=== PATIENT | male | born 1960 | race Caucasian/White ===

== ENCOUNTER 2016-11-30 17:23 | Emergency (ER) | payer BC ==
[2016-11-30 19:18] LABS: CHLORIDE,CL 104 mmol/L (98-110); SODIUM,NA 141 mmol/L (136-146)
--- NOTE | 2016-11-30 19:20 | EDM.PDOC ---
ED HPI GI/ABDOMINAL - General Chief Complaint: Gastrointestinal Problem Stated Complaint: STOMACH PAIN Time Seen by Provider: 11/30/16 17:36 Source of Information: Reports: Patient History Limitations: Reports: No limitations - History of Present Illness INITIAL COMMENTS - FREE TEXT/NARRATIVE: Presents reporting that on November 28 he inserted a regular sized orange into his rectum. Since that time he has been unable to retrieve it either manually or by having a bowel movement. Now, he is uncomfortable with some sweating but no nausea, fever or vomiting. He has not passed any stool or gas since the insertion. - Related Data Allergies/ADRs: Allergies Allergy/AdvReac Type Severity Reaction Status Date / Time No Known Allergies Allergy Verified 11/30/16 17:32 Home Meds: Home Meds . [No Known Home Meds] 11/30/16 [History] Past Medical History HEENT History: Reports: Impaired vision - Past Surgical History Musculoskeletal Surgical History: Reports: Other (see below) Other Musculoskeletal Surgeries/Procedures:: left hip surgery with screws Social & Family History - Family History Family Medical History: Noncontributory - Tobacco Use Smoking Status *Q: Never Smoker Second Hand Smoke Exposure: No - Caffeine Use Caffeine Use: Reports: Soda Caffeine Use Comment: 2 sodas a day - Alcohol Use Days Per Week of Alcohol Use: 7 Number of Drinks Per Day: 2 Total Drinks Per Week: 14 - Recreational Drug Use Recreational Drug Use: No ED ROS GENERAL - Review of Systems Review Of Systems: ROS reveals no pertinent complaints other than HPI. ED EXAM, GI/ABD - Physical Exam Exam: See Below Exam Limited By: No limitations General Appearance: alert, no apparent distress Ears: normal external exam Nose: normal inspection Throat/Mouth: Normal inspection Head: atraumatic, normocephalic Neck: normal inspection Respiratory/Chest: no respiratory distress Cardiovascular: normal peripheral pulses, regular rate, rhythm, no murmur GI/Abdominal: normal bowel sounds, soft, non tender, no distention, hyperactive bowel sounds Rectal (Males) Exam: Normal exam, Normal rectal tone, Other (no foreign mass on digital). No: Bloody Stool, Mass Back Exam: normal inspection Extremities: normal inspection Neurological: alert, oriented Psychiatric: normal affect, normal mood Skin Exam: Warm, Dry, Intact, Normal color, No rash Lymphatic: no adenopathy Course - Vital Signs Last Recorded V/S: Last Vital Signs Temp 37.1 C 11/30/16 19:16 Pulse 72 11/30/16 19:16 Resp 17 11/30/16 19:16 BP 157/87 H 11/30/16 19:16 Pulse Ox 98 11/30/16 19:16 - Orders/Labs/Meds Orders: Active Orders 24 hr Category Date Time Status Abdomen 1V Flat [CR] Stat Exams 11/30/16 17:53 Taken Abdomen Pelvis wo Cont [CT] Stat Exams 11/30/16 18:19 Taken Labs: Laboratory Tests 11/30/16 11/30/16 Range/Units 18:49 18:49 WBC 15.11 H (4.0-11.0) K/uL RBC 5.59 (4.50-5.90) M/uL Hgb 16.8 (13.0-17.0) g/dL Hct 49.2 (38.0-50.0) % MCV 88.0 (80.0-98.0) fL MCH 30.1 (27.0-32.0) pg MCHC 34.1 (31.0-37.0) g/dL RDW Std Deviation 40.5 (28.0-62.0) fl RDW Coeff of Yaima 13 (11.0-15.0) % Plt Count 237 (150-400) K/uL MPV 10.60 (7.40-12.00) fL Neut % (Auto) 85.0 H (48.0-80.0) % Lymph % (Auto) 9.5 L (16.0-40.0) % Mckean % (Auto) 5.2 (0.0-15.0) % Eos % (Auto) 0.2 (0.0-7.0) % Baso % (Auto) 0.1 (0.0-1.5) % Neut # (Auto) 12.9 H (1.4-5.7) K/uL Lymph # (Auto) 1.4 (0.6-2.4) K/uL Mckean # (Auto) 0.8 (0.0-0.8) K/uL Eos # (Auto) 0.0 (0.0-0.7) K/uL Baso # (Auto) 0.0 (0.0-0.1) K/uL Nucleated RBC % 0.0 /100WBC Nucleated RBCs # 0 K/uL Sodium 141 (136-146) mmol/L Potassium 3.9 (3.5-5.1) mmol/L Chloride 104 (98-110) mmol/L Carbon Dioxide 26 (21-31) mmol/L BUN 14 (6.0-23.0) mg/dL Creatinine 0.9 (0.6-1.5) mg/dL Est Cr Clr Drug Dosing 101.79 mL/min Estimated GFR (MDRD) > 60.0 ml/min Glucose 119 H (60-110) mg/dL Calcium 9.7 (8.8-10.8) mg/dL Total Bilirubin 1.2 (0.1-1.5) mg/dL AST 22 (5-40) IU/L ALT 25 (8-54) IU/L Alkaline Phosphatase 71 (40-150) Total Protein 7.6 (6.0-8.0) g/dL Albumin 4.5 (3.5-5.0) g/dL Globulin 3.1 (2.0-3.5) g/dL Albumin/Globulin Ratio 1.5 (1.3-2.8) - Re-Assessments/Exams Free Text/Narrative Re-Assessment/Exam: 11/30/161944 Dr. Bassett, General surgery was consulted regarding patient history, lab results, X-ray and CT results. Same saw patient and arranged for transfer. Departure - Departure Time of Disposition: 20:18 Disposition: DC/Tfer to [facility] 02 Clinical Impression: Foreign body in colon, initial encounter Qualifiers: Encounter type: initial encounter Qualified Code(s): T18.4XXA - Foreign body in colon, initial encounter Forms: ED Department Discharge - My Orders Last 24 Hours: My Active Orders 11/30/16 17:53 Abdomen 1V Flat [CR] Stat 11/30/16 18:19 Abdomen Pelvis wo Cont [CT] Stat - Assessment/Plan Last 24 Hours: My Active Orders 11/30/16 17:53 Abdomen 1V Flat [CR] Stat 11/30/16 18:19 Abdomen Pelvis wo Cont [CT] Stat
[2016-11-30 21:19] VITALS: BP 143/89
--- NOTE | 2016-11-30 21:31 | CONS ---
DATE OF CONSULTATION: 11/30/2016 DATE OF : 1960 PRIMARY CARE PHYSICIAN: None PCP Consult was called and the patient was seen shortly after concerning question is foreign body in colon. HISTORY OF PRESENT ILLNESS: The patient is a 56-year-old gentleman with no prior surgical history and with no prior medical history complaining of abdominal pain 3 days after he inserted an orange through his rectum. The patient remarked that when it happened he did not feel too much pain and he was not nauseated or vomiting and he felt just fine, that was three days ago. As time goes on, he has crampy abdominal pain, and this morning, he felt a little bit nauseated, so he sought help in the emergency room. He denied vomiting, fever, chill, or diarrhea. As a matter of fact, he did not have a bowel movement for the last 72 hours. Workup in the emergency room includes blood work and CAT scan without contrast. CAT scan revealed an orange object in the distal sigmoid without free air or pneumatosis and white count was 15. Surgery was consulted for further management. PAST MEDICAL HISTORY: Denied diabetic, NE, CVA, hypertension. PAST SURGICAL HISTORY: None. ALLERGIES: Please refer to nursing note for details. MEDICATION: Please refer to nursing note for details. REVIEW OF SYSTEMS: Same as history of present illness. PHYSICAL EXAMINATION: GENERAL: A very pleasant, nice gentleman, with his arm fold behind his head in a "go home position." HEENT: Normocephalic, atraumatic. Sclerae anicteric. LUNGS: Clear to auscultation. HEART: Regular rate and rhythm. ABDOMEN: Soft, nondistended. No pulsating, tender midline abdominal structure. No surgical scar and nontender. Bowel sign in all 4 quadrants. IMAGING: CAT scan as delineated above and white count 15. IMPRESSION: Foreign object in distal sigmoid. Because it is already 3 days, in light of the situation and considered all the fact, the patient probably would benefit from exploratory laparotomy and get a colostomy and to extract the orange out from exploratory laparotomy and because I am going to prep the bowel probably also finish with colostomy. This has been described to the patient, the risks and benefit and involving prep the bowel as well as infection risks. The patient requests 2nd opinion, expect maybe to use some other option like endoscopy removal or other situation rather than surgery. Discussed with the patient that is not the best option, [facility] may have a different option and the patient chose to go to [facility] in [place] and the case has been discussed with on-call surgeon Dr. Gutierres and Dr. Gutierres greatly accepted the transfer. The patient will go by ground ambulance. The patient will go with the CAT scan and the report and a consult note. Thank you Gabbi Condon, the ER provider for the referral. RAJ / FANY /[id number]
--- NOTE | 2016-12-01 14:05 | CR ---
EXAM DATE: 11/30/16 PATIENT'S AGE: 56 Patient: ELISE KNOTT Facility: [place], [place] Site . Site : 1960 Study: XRay Abdomen [id number]/18/2017 6:09:25 PM Ordering Physician: Doctor Clark Final Report: INDICATION: [place] in rectum since Tuesday. Unable defined on digital exam TECHNIQUE: Abdomen 3 view. COMPARISON: None FINDINGS: Bowel: Air distended: Proximal to the probable round foreign body in the region of the mid sigmoid. Soft tissues: 10.0 centimeter x 9.0 centimeter round soft tissue density surrounded by a halo of air projects over the mid and lower sacrum/coccyx. This may correspond to the patient`s known foreign bodies/orange. No sign of free air. No suspicious calcifications. Bones: Unremarkable for age. IMPRESSION: 10.0 centimeter x 9.0 centimeter round soft tissue density surrounded by a halo of air projects over the mid and lower sacrum/coccyx and may represent the patient`s known foreign bodies/orange. This most likely resides within the mid sigmoid colon. Air distended proximal large bowel loops noted. Dictated by Mode Zimmer MD @ 11/30/2016 6:18:09 PM Dictated by: Mode Zimmer MD @ 11/30/2016 18:18:13 ----- ADDENDUM ----- Confirmation of report received on 11/30/2016 at 6:25 p.m. with WILBUR Byrnes : Dictated by Mode Zimmer MD @ Nov 30 2016 7:51PM (Electronic Signature) Report Signed by Proxy and Original Signed Document filed in the Medical Record. AUDREY
--- NOTE | 2016-12-01 14:09 | CT ---
EXAM DATE: 11/30/16 PATIENT'S AGE: 56 Patient: ELISE KNOTT Facility: [place], [place] Site . Site : 1960 Study: CT Abdomen/Pelvis WO CONT [id number]/2017 6:44:50 PM Ordering Physician: Doctor Clark Final Report: INDICATION: Regular sized orange in rectum since Tuesday. TECHNIQUE: CT abdomen and pelvis acquired without contrast. COMPARISON: Abdominal radiograph November 30, 2016. FINDINGS: Lower chest: Unremarkable. Liver: Unremarkable. Spleen: Unremarkable. Pancreas: Unremarkable. Gallbladder and bile ducts: Unremarkable. Kidneys: Unremarkable. Adrenal glands: Unremarkable. GI tract: Rounded mixed density foreign body consistent with reported orange is present in the distal sigmoid colon. This measures approximately 9.5 x 8 cm on axial image 115 of series 301. Mild stranding adjacent to the sigmoid colon. There is also mild stranding of the perirectal soft tissues. Subtle pericolonic stranding elsewhere. No pneumatosis or free intraperitoneal gas at this time. The small bowel is unremarkable. Normal appendix. No free fluid or drainable intra-abdominal fluid collection. Vascular structures: Unremarkable. Lymph nodes: Unremarkable. Pelvic Organs: Unremarkable. Bones: Degenerative changes of the spine. Fixation hardware of the left hip as imaged appears intact. Degenerative changes of the bilateral hips, left greater than right. IMPRESSION: Foreign body consistent with reported orange in the distal sigmoid colon. There are associated pericolonic inflammatory changes. No pneumatosis or free intraperitoneal gas at this time. Surgical consultation regarding further management recommended. Discussed with Dr. Condon at the time of dictation. Dictated by Wiliam Anthony MD @ 11/30/2016 7:03:34 PM Dictated by: Wiliam Anthony MD @ 11/30/2016 19:03:58 (Electronic Signature) Report Signed by Proxy and Original Signed Document filed in the Medical Record. [facility]
== END 2016-11-30 21:15 ==
LOC: MW.ED 17:23
DX: T18.4XXA Foreign body in colon, initial encounter (principal)
CPT/HCPCS: 36415; 74000; 74000-26; 74176; 74176-26; 80053; 85025; 99284; 99285-25